=== PATIENT | female | born 2005 | race Caucasian/White ===

== ENCOUNTER 2024-12-21 20:29 | Emergency (ER) | payer BC ==
[~2024-12-21] VITALS: Ht 172.7 cm; Wt 55.2 kg
[2024-12-21 20:33] VITALS: O2SAT 100
[2024-12-21 20:39] VITALS: TEMP 36.7
[2024-12-21] MEDS ORDERED: VALA100044 MT (22:37)
[2024-12-21] MEDS ORDERED: BENZ1SPR PO (22:37)
[2024-12-21 22:51] VITALS: BP 106/65; PULSE 80; RESP 16; O2SAT 100
== END 2024-12-21 22:53 | disposition home or self-care (01) ==
LOC: ER 20:29
DX: R21 Rash and other nonspecific skin eruption (principal); Z79.624 Long term (current) use of inhibitors of nucleotide synthesis; Z86.59 Personal history of other mental and behavioral disorders
CPT/HCPCS: 99283